=== PATIENT | female | born 1945 | race Caucasian/White ===

== ENCOUNTER 2017-02-05 14:24 | Emergency (ER) | payer BC ==
[~2017-02-05] VITALS: Ht 172.7 cm; Wt 80.0 kg
[2017-02-05 14:27] VITALS: BP 186/104; PULSE 94; RESP 15; TEMP 98.2; O2SAT 95
--- NOTE | 2017-02-05 15:17 | PD ---
HPI Chief Complaint: Hypertension Time Seen by Provider: 15:13 Travel History International Travel<30 days: No Contact w/Intl Traveler<30days: No Traveled to known affect area: No History of Present Illness HPI Patient is a 71-year-old female sent by the [facility] for evaluation of a near syncopal episode as well as elevated blood pressure reading. Patient states that she is supposed be on blood pressure medication but is not consistent with taking them. This morning she was walking with a friend when she got dizzy and almost passed out however the friend caught her as she fell down. She denies any chest pain, shortness of breath, nausea, vomiting, fever, chills. Patient does state that she has a history of depression and doesn't care if she lives or dies but denies any suicidal ideations. Patient does have a history of previous suicide attempts over the last 2 years. PFS Past Medical History Anxiety: Yes Depression: Yes Hypertension: Yes ?: Not Past Surgical History Abdominal Surgery: Yes (gastric bypass) Appendectomy: Yes Cholecystectomy: Yes Tonsillectomy: Yes Other Surgery: Yes (breast augmentation) Social History Alcohol Use: No Tobacco Use: No Substance Use: No Allergies-Medications (Allergen,Severity, Reaction): Coded Allergies: Codeine (Verified Allergy, Unknown, 02/05/17) Review of Systems Except as stated in HPI: all other systems reviewed are Neg Cardiovascular: Positive: Syncope Psychiatric: Positive: Depression Physical Exam Narrative GENERAL: Thin, well-developed, alert elderly female. Resting comfortably in no acute distress. SKIN: Warm and dry. HEAD: Atraumatic. Normocephalic. EYES: Pupils equal and round. No scleral icterus. No injection or drainage. ENT: No nasal bleeding or discharge. Mucous membranes pink and moist. NECK: Trachea midline. No JVD. CARDIOVASCULAR: Regular rate and rhythm. No murmur appreciated. RESPIRATORY: No accessory muscle use. Clear to auscultation. Breath sounds equal bilaterally. GASTROINTESTINAL: Abdomen soft, non-tender, nondistended. Hepatic and splenic margins not palpable. MUSCULOSKELETAL: No obvious deformities. No clubbing. No cyanosis. No edema. NEUROLOGICAL: Awake and alert. No obvious cranial nerve deficits. Motor grossly within normal limits. Normal speech. PSYCHIATRIC: Depressed mood and flat affect; insight and judgment normal. Data Data Last Documented VS Vital Signs Date Time Temp Pulse Resp B/P Pulse Ox O2 Delivery O2 Flow Rate FiO2 02/05/17 18:15 82 18 167/78 98 02/05/17 14:27 98.2 Orders Electrocardiogram (02/05/17 15:11) Ckmb (Isoenzyme) Profile (02/05/17 15:11) Complete Blood Count With Diff (02/05/17 15:11) Comprehensive Metabolic Panel (02/05/17 15:11) Magnesium (Mg) (02/05/17 15:11) Prothrombin Time / Inr (Pt) (02/05/17 15:11) Act Partial Throm Time (Ptt) (02/05/17 15:11) Troponin I (02/05/17 15:11) Chest, Single Ap (02/05/17 15:11) Orthostatic Vital Signs (02/05/17 16:35) Labs Laboratory Tests Test 02/05/17 15:28 White Blood Count 8.1 TH/MM3 Red Blood Count 5.10 MIL/MM3 Hemoglobin 12.8 GM/DL Hematocrit 41.1 % Mean Corpuscular Volume 80.6 FL Mean Corpuscular Hemoglobin 25.0 PG Mean Corpuscular Hemoglobin 31.0 % Concent Red Cell Distribution Width 20.2 % Platelet Count 220 TH/MM3 Mean Platelet Volume 8.8 FL Neutrophils (%) (Auto) 85.7 % Lymphocytes (%) (Auto) 7.7 % Monocytes (%) (Auto) 5.7 % Eosinophils (%) (Auto) 0.3 % Basophils (%) (Auto) 0.6 % Neutrophils # (Auto) 7.0 TH/MM3 Lymphocytes # (Auto) 0.6 TH/MM3 Monocytes # (Auto) 0.5 TH/MM3 Eosinophils # (Auto) 0.0 TH/MM3 Basophils # (Auto) 0.0 TH/MM3 CBC Comment DIFF FINAL Differential Comment Prothrombin Time 11.8 SEC Prothromb Time International 1.1 RATIO Ratio Activated Partial 21.1 SEC Thromboplast Time Sodium Level 140 MEQ/L Potassium Level 4.1 MEQ/L Chloride Level 107 MEQ/L Carbon Dioxide Level 21.6 MEQ/L Anion Gap 11 MEQ/L Blood Urea Nitrogen 24 MG/DL Creatinine 1.55 MG/DL Estimat Glomerular Filtration 33 ML/MIN Rate Random Glucose 83 MG/DL Calcium Level 8.6 MG/DL Magnesium Level 2.1 MG/DL Total Bilirubin 0.3 MG/DL Aspartate Amino Transf 14 U/L (AST/SGOT) Alanine Aminotransferase 21 U/L (ALT/SGPT) Alkaline Phosphatase 108 U/L Total Creatine Kinase 46 U/L Troponin I LESS THAN 0.02 NG/ML Total Protein 7.7 GM/DL Albumin 3.8 GM/DL MDM Medical Decision Making Medical Screen Exam Complete: Yes Emergency Medical Condition: Yes Interpretation(s) Vital Signs Date Time Temp Pulse Resp B/P Pulse Ox O2 Delivery O2 Flow Rate FiO2 02/05/17 14:27 98.2 94 15 186/104 95 Differential Diagnosis Arrhythmia versus lead joint abnormality versus ACS versus depression versus suicidal ideations versus other Narrative Course Patient is 71-year-old female presenting to emergency Department for evaluation after syncopal episode. Additionally she has reportedly been depressed and doesn't care if she lives or dies. She doesn't want to kill herself. Labs and imaging ordered and pending. Psych screen ordered. Patient is currently at [facility] for depression. Workup initiated in triage, care patient will be transferred to a provider with a medical bed is available. Catherine Combs Feb 05, 2017 15:17
[2017-02-05 15:50] LABS: APTT (PATIENT) 21.1 SEC (24.3-30.1); INTERNATIONAL NORMALIZED RATIO 1.1 RATIO; PROTHROMBIN TIME - PATIENT 11.8 SEC (9.8-11.6)
[2017-02-05 15:51] LABS: ALT (GPT) 21 U/L (10-53); ANION GAP 11 MEQ/L (5-15); AST (GOT) 14 U/L (15-37); BICARBONATE 21.6 MEQ/L (21.0-32.0); BLOOD UREA NITROGEN 24 MG/DL (7-18); CHLORIDE 107 MEQ/L (98-107); GLOMERULAR FILTRATION RATE 33 ML/MIN (>89); MAGNESIUM 2.1 MG/DL (1.5-2.5); POTASSIUM 4.1 MEQ/L (3.5-5.1); SODIUM (NA) 140 MEQ/L (136-145)
[2017-02-05 15:53] LABS: ALKALINE PHOSPHATASE 108 U/L (45-117); TOTAL BILIRUBIN ADULT 0.3 MG/DL (0.2-1.0)
[2017-02-05 15:57] LABS: CREATINE KINASE 46 U/L (26-192)
[2017-02-05 16:02] LABS: BASOPHIL % 0.6 % (0.0-2.0); EOSINOPHIL % 0.3 % (0.0-4.0); HEMATOCRIT 41.1 % (35.0-46.0); HEMO FLAGS DIFF FINAL; LYMPH % 7.7 % (9.0-44.0); LYMPHOCYTE # 0.6 TH/MM3 (1.0-4.8); MEAN CELL VOLUME 80.6 FL (80.0-100.0); MONO % 5.7 % (0.0-8.0); NEUT % 85.7 % (16.0-70.0); PLATELET COUNT 220 TH/MM3 (150-450); RED CELL DISTRIBUTION WIDTH 20.2 % (11.6-17.2); WHITE BLOOD COUNT 8.1 TH/MM3 (4.0-11.0)
--- NOTE | 2017-02-05 16:46 | RADRPT ---
EXAM DATE/TIME: 02/05/2017 15:22 [place] COMPARISON: No previous studies available for comparison. INDICATIONS : Syncope. MEDICAL HISTORY : None. SURGICAL HISTORY : None. ENCOUNTER: Initial ACUITY: 1 day PAIN SCORE: 0/10 LOCATION: Bilateral chest FINDINGS: A single view of the chest demonstrates the lungs to be symmetrically aerated without evidence of inf iltrate or effusion. There is a calcified granuloma at the right upper lung. The cardiomediastinal c ontours are unremarkable. Osseous structures are intact. CONCLUSION: No acute disease. Tim Mullins Jr., MD on February 05, 2017 at 15:52 Board Certified Radiologist. This report was verified electronically.
[2017-02-05 17:00] VITALS: BP_SYST 163; BP_SYST 176; BP_SYST 178; BP_DIAS 92; BP_DIAS 95; BP_DIAS 98; RESP 18
--- NOTE | 2017-02-05 17:11 | PD ---
Physical Exam Time Seen by Provider: 17:09 Narrative Workup initiated in triage. Data Data Last Documented VS Vital Signs Date Time Temp Pulse Resp B/P Pulse Ox O2 Delivery O2 Flow Rate FiO2 02/05/17 14:27 98.2 94 15 186/104 95 Orders Electrocardiogram (02/05/17 15:11) Ckmb (Isoenzyme) Profile (02/05/17 15:11) Complete Blood Count With Diff (02/05/17 15:11) Comprehensive Metabolic Panel (02/05/17 15:11) Magnesium (Mg) (02/05/17 15:11) Prothrombin Time / Inr (Pt) (02/05/17 15:11) Act Partial Throm Time (Ptt) (02/05/17 15:11) Troponin I (02/05/17 15:11) Chest, Single Ap (02/05/17 15:11) Orthostatic Vital Signs (02/05/17 16:35) Labs Laboratory Tests Test 02/05/17 15:28 White Blood Count 8.1 TH/MM3 Red Blood Count 5.10 MIL/MM3 Hemoglobin 12.8 GM/DL Hematocrit 41.1 % Mean Corpuscular Volume 80.6 FL Mean Corpuscular Hemoglobin 25.0 PG Mean Corpuscular Hemoglobin 31.0 % Concent Red Cell Distribution Width 20.2 % Platelet Count 220 TH/MM3 Mean Platelet Volume 8.8 FL Neutrophils (%) (Auto) 85.7 % Lymphocytes (%) (Auto) 7.7 % Monocytes (%) (Auto) 5.7 % Eosinophils (%) (Auto) 0.3 % Basophils (%) (Auto) 0.6 % Neutrophils # (Auto) 7.0 TH/MM3 Lymphocytes # (Auto) 0.6 TH/MM3 Monocytes # (Auto) 0.5 TH/MM3 Eosinophils # (Auto) 0.0 TH/MM3 Basophils # (Auto) 0.0 TH/MM3 CBC Comment DIFF FINAL Differential Comment Prothrombin Time 11.8 SEC Prothromb Time International 1.1 RATIO Ratio Activated Partial 21.1 SEC Thromboplast Time Sodium Level 140 MEQ/L Potassium Level 4.1 MEQ/L Chloride Level 107 MEQ/L Carbon Dioxide Level 21.6 MEQ/L Anion Gap 11 MEQ/L Blood Urea Nitrogen 24 MG/DL Creatinine 1.55 MG/DL Estimat Glomerular Filtration 33 ML/MIN Rate Random Glucose 83 MG/DL Calcium Level 8.6 MG/DL Magnesium Level 2.1 MG/DL Total Bilirubin 0.3 MG/DL Aspartate Amino Transf 14 U/L (AST/SGOT) Alanine Aminotransferase 21 U/L (ALT/SGPT) Alkaline Phosphatase 108 U/L Total Creatine Kinase 46 U/L Troponin I LESS THAN 0.02 NG/ML Total Protein 7.7 GM/DL Albumin 3.8 GM/DL [facility] Medical Record Reviewed: Yes Supervised Visit with TR: No Narrative Course Patient presents to the emergency department for evaluation following a near syncopal episode. Patient states that she was walking when she became dizzy and fell into bird cages while visiting a friend. Her brother was there and helped her to a seat. She not lose complete consciousness. Patient states she did not feel any chest tightness or pressure prior to this. She not become diaphoretic. She states she has history of anxiety, depression, and hypertension. Denies any significant cardiac history. States that she feels "fine" right now. Her vital signs are stable. CBC is without acute concern. CMP is with unit 24, creatinine 1.55. Troponin is less than 0.02. I discussed the patient in my attending physician Dr. Araya was also viewed the findings. Orthostatic vital signs are within normal limits. Patient will ambulate, pending no difficulty, she'll be discharged. Diagnosis Primary Impression: Near syncope Additional Impression: Hypertension Qualified Code: I10 - Essential hypertension Referrals: Primary Care Physician Patient Instructions: General Instructions, Near Syncope (ED) Additional Instruction: Maintain adequate oral hydration Follow-up with a primary care provider Return immediately with any acute worsening of symptoms Med/Other Pt SpecificInfo: No Change to Meds Disposition: 01 DISCHARGE HOME Condition: Stable WenRhiannon sullivan RADHA Feb 05, 2017 17:11
--- NOTE | 2017-02-05 17:22 | PD ---
Data Data Last Documented VS Vital Signs Date Time Temp Pulse Resp B/P Pulse Ox O2 Delivery O2 Flow Rate FiO2 02/05/17 14:27 98.2 94 15 186/104 95 Orders Electrocardiogram (02/05/17 15:11) Ckmb (Isoenzyme) Profile (02/05/17 15:11) Complete Blood Count With Diff (02/05/17 15:11) Comprehensive Metabolic Panel (02/05/17 15:11) Magnesium (Mg) (02/05/17 15:11) Prothrombin Time / Inr (Pt) (02/05/17 15:11) Act Partial Throm Time (Ptt) (02/05/17 15:11) Troponin I (02/05/17 15:11) Chest, Single Ap (02/05/17 15:11) Orthostatic Vital Signs (02/05/17 16:35) Labs Laboratory Tests Test 02/05/17 15:28 White Blood Count 8.1 TH/MM3 Red Blood Count 5.10 MIL/MM3 Hemoglobin 12.8 GM/DL Hematocrit 41.1 % Mean Corpuscular Volume 80.6 FL Mean Corpuscular Hemoglobin 25.0 PG Mean Corpuscular Hemoglobin 31.0 % Concent Red Cell Distribution Width 20.2 % Platelet Count 220 TH/MM3 Mean Platelet Volume 8.8 FL Neutrophils (%) (Auto) 85.7 % Lymphocytes (%) (Auto) 7.7 % Monocytes (%) (Auto) 5.7 % Eosinophils (%) (Auto) 0.3 % Basophils (%) (Auto) 0.6 % Neutrophils # (Auto) 7.0 TH/MM3 Lymphocytes # (Auto) 0.6 TH/MM3 Monocytes # (Auto) 0.5 TH/MM3 Eosinophils # (Auto) 0.0 TH/MM3 Basophils # (Auto) 0.0 TH/MM3 CBC Comment DIFF FINAL Differential Comment Prothrombin Time 11.8 SEC Prothromb Time International 1.1 RATIO Ratio Activated Partial 21.1 SEC Thromboplast Time Sodium Level 140 MEQ/L Potassium Level 4.1 MEQ/L Chloride Level 107 MEQ/L Carbon Dioxide Level 21.6 MEQ/L Anion Gap 11 MEQ/L Blood Urea Nitrogen 24 MG/DL Creatinine 1.55 MG/DL Estimat Glomerular Filtration 33 ML/MIN Rate Random Glucose 83 MG/DL Calcium Level 8.6 MG/DL Magnesium Level 2.1 MG/DL Total Bilirubin 0.3 MG/DL Aspartate Amino Transf 14 U/L (AST/SGOT) Alanine Aminotransferase 21 U/L (ALT/SGPT) Alkaline Phosphatase 108 U/L Total Creatine Kinase 46 U/L Troponin I LESS THAN 0.02 NG/ML Total Protein 7.7 GM/DL Albumin 3.8 GM/DL [facility] Supervised Visit with TR: Yes Narrative Course I, Dr. Araya, have reviewed the advance practice practioner's documentation and am in agreement, met with the patient face to face, made the diagnosis, and the medical decision making was done by me. *My assessment and Findings: 71-year-old female here with near syncopal episode. Patient was standing when this happened, and was assisted to CT. No LOC. She denied any chest pain, shortness of breath, palpitations. Patient has never had symptoms like this before. She felt slightly diaphoretic but feels well now. Exam is unremarkable, regular rate and rhythm, clear to auscultation bilaterally. No peripheral edema. Differential includes syncope, near-syncope, symptomatic anemia, arrhythmia, electrolyte abnormality, ACS, orthostasis. Twelve-lead EKG shows sinus rhythm. Laboratory workup unremarkable. Patient does not want to stay be admitted for further workup. Orthostatic vital signs will be obtained, child of ambulation and patient remains asymptomatic okay for discharge to home. Condition: Stable Rosy Araya MD Feb 05, 2017 17:21 Rosy Araya MD Feb 05, 2017 17:21
[2017-02-05 18:15] VITALS: BP 167/78
--- NOTE | 2017-02-06 20:17 | EKG ---
Date Performed: 02/05/2017 Time Performed: 15:17:38 PTAGE: 71 years EKG: Sinus rhythm BORDERLINE LEFT AXIS DEVIATION LOW QRS VOLTAGE IN PRECORDIAL LEADS BORDERLINE ECG NO PREVIOUS TRACING DOCTOR: Chapo Guadalupe Interpretating Date/Time 02/06/2017 20:15:35
== END 2017-02-05 18:31 | disposition home or self-care (01) ==
LOC: NEPE 14:24
DX: R55 Syncope and collapse (principal); I10 Essential (primary) hypertension; R94.31 Abnormal electrocardiogram [ECG] [EKG]
CPT/HCPCS: 71010; 80053; 82550; 83735; 84484; 85025; 85610; 85730; 93005